=== PATIENT | male | born 1965 | race American Indian/Alaskan Native ===

== ENCOUNTER 2018-07-11 20:14 | Emergency (ER) | payer OTHER ==
[2018-07-11] MEDS ORDERED: MOTRIN ONE (20:53)
[2018-07-11 20:56] VITALS: BP 109/72
[2018-07-11] MEDS ORDERED: MOTRIN PO ONE (20:57)
--- NOTE | 2018-07-11 22:45 | XRay Report ---
FINAL REPORT PROCEDURE: XR SPINE LUMBOSACRAL 2-3V TECHNIQUE: Lumbosacral spine, three views HISTORY: lower back pain COMPARISON: No prior studies are available for comparison. FINDINGS: No scoliosis. The vertebral body alignment is maintained. There is mild vertebral body height loss of L2 and L4, of uncertain chronicity, possibly chronic. Facet arthritic changes of the lower lumbar spine are present. Anterior osteophytes are present. IMPRESSION: Mild vertebral body height loss of L2 and L4, of uncertain chronicity. If there has been acute injury, further evaluation with CT could be obtained
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
== END 2018-07-12 01:10 | disposition home or self-care (01) ==
LOC: ED 20:14
DX: M51.86 Other intervertebral disc disorders, lumbar region (principal); E11.9 Type 2 diabetes mellitus without complications; V89.2XXA Person injured in unspecified motor-vehicle accident, traffic, initial encounter; Y93.89 Activity, other specified; Y99.8 Other external cause status; Y92.410 Unspecified street and highway as the place of occurrence of the external cause
CPT/HCPCS: 72100; 72131

== ENCOUNTER 2018-08-12 20:50 | Emergency (ER) | payer SELFPAY ==
[2018-08-12 22:31] VITALS: BP 145/94
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
[2018-08-13] MEDS ORDERED: XYLOCAINE 1% 20 mL INFILTRATI ONE (00:03)
[2018-08-13] MEDS ORDERED: NORCO 5/325 PO ONE (00:03)
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
[2018-08-13] MEDS ORDERED: BOOSTRIX IM ONE (00:08)
[2018-08-13] MEDS ORDERED: XYLOCAINE 1% MPF 5 mL ONE (00:17)
== END 2018-08-13 01:45 | disposition home or self-care (01) ==
LOC: ED 20:50
DX: S61.012A Laceration without foreign body of left thumb without damage to nail, initial encounter (principal); E11.9 Type 2 diabetes mellitus without complications; F17.200 Nicotine dependence, unspecified, uncomplicated; W27.8XXA Contact with other nonpowered hand tool, initial encounter; Y93.89 Activity, other specified; Y99.8 Other external cause status; Y92.89 Other specified places as the place of occurrence of the external cause
CPT/HCPCS: 90471; 90715; 99283

== ENCOUNTER 2021-02-15 20:50 | Emergency (ER) | payer SELFPAY ==
[2021-02-15 21:11] VITALS: BP 143/89
--- NOTE | 2021-02-15 21:15 | Event Note ---
ED Screening Note Date of service: 02/15/21 Time: 21:11 ED Screening Note: 55-year-old [id number] male patient with history of diabetes presents to emergency department with complaints of progressively worsening pain and swelling of his right hand over the course of the last week. Patient states he was woodworking and accidentally punctured himself with a splinter. He thought he had remove the splinter, but now he thinks he may have been unsuccessful. No current antibiotic use. He admits that he has not been monitoring his blood glucose levels. General: Awake, appropriately interactive, no acute distress. Neck: Supple. Full range of motion intact. Cardiovascular: Normal peripheral perfusion. Pulmonary: No respiratory distress. Patient is speaking normally without use of accessory muscles. Skin: No apparent rashes or lesions. Neurological: No facial asymmetry. Speech is clear. Follows commands. Patient is alert and oriented. Musculoskeletal: Tenderness to palpation along the right thumb with swelling most pronounced throughout the radial aspect of the right hand. Active and passive range of motion intact but painful in all directions, limited slightly due to the swelling. Distal neurovascular motor/sensory function is intact. Psych: Cooperative. Appropriate mood and affect. I have greeted and performed a focused rapid initial assessment of this patient. A comprehensive ED assessment and evaluation of the patient, analysis of all test results, and completion of the medical decision-making process will be conducted by additional ED providers. This initial assessment/diagnostic orders/clinical plan/treatment(s) is/are subject to change based on patients health status, clinical progression and re-assessment. Further treatment and workup at subsequent clinical provider's discretion. Patient/guardian urged not to elope from the ED as their condition may be serious if not clinically assessed and managed.
[2021-02-15 21:29] LABS: Basophils % (Auto) 0.3 % (0.0-1.8); Eosinophils # (Auto) 0.2 K/mm3 (0.0-0.4); Eosinophils % (Auto) 1.9 % (0.0-4.3); Hematocrit 41.7 % (35.5-45.6); Lymphocytes # (Auto) 2.6 K/mm3 (1.2-5.4); Lymphocytes % (Auto) 24.1 % (13.4-35.0); Mean Corpuscular HGB Conc 34 % (32-34); Mean Corpuscular Volume 88 fl (84-94); Monocytes # (Auto) 0.7 K/mm3 (0.0-0.8); Monocytes % (Auto) 6.8 % (0.0-7.3); Platelet Count 218 K/mm3 (140-440); Red Blood Count 4.74 M/mm3 (3.65-5.03); Red Cell Distribution Width 13.4 % (13.2-15.2)
--- NOTE | 2021-02-15 21:45 | XRay Report ---
EXAMINATION: Right hand radiograph, 3 views, 02/15/2021 CLINICAL INFORMATION: Right hand pain and swelling. Evaluate for foreign body. Splinter. COMPARISON: None. FINDINGS: There is no evidence of acute fracture. No significant bony degenerative changes are noted. There is minimal soft tissue injury and soft tissue gas at the base of the thumb at the area of inju ry indicated by the technologist. No radiodense foreign body is identified. IMPRESSION: 1. Soft tissue injury at the base of the thumb without evidence for radiodense foreign body. Please note that some foreign body such as wood fragments are not well visualized by x-ray. Signer Name: Iva Agee MD Signed: 02/15/2021 9:40 PM Workstation Name: [id number]
[2021-02-15 21:49] LABS: Alanine Aminotransferase 12 units/L (7-56); Albumin 3.7 g/dL (3.9-5); BUN/Creatinine Ratio 11; Blood Urea Nitrogen 9 mg/dL (9-20); Calcium 8.7 mg/dL (8.4-10.2); Hemolysis Index 7
--- NOTE | 2021-02-15 21:51 | Emergency Department Report ---
<BARBOURROSY - Last Filed: 02/15/21 22:39> - General Chief complaint: Extremity Injury, Upper Stated complaint: RT FINGER PAIN Time Seen by Provider: 02/15/21 21:34 - Related Data Previous Rx's Medication Instructions Recorded Last Taken Type traMADoL [Ultram 50 MG tab] 50 mg PO Q6HR PRN #12 tablet 07/12/18 Unknown Rx Ibuprofen [Motrin 600 MG tab] 600 mg PO Q8H PRN #15 tablet 08/13/18 Unknown Rx cephALEXin [Keflex] 500 mg PO BID 10 Days #20 capsule 08/13/18 Unknown Rx Amoxicillin/Potassium Clav 1 each PO BID 10 Days #20 tablet 02/15/21 Unknown Rx [Augmentin 875-125 Tablet] HYDROcodone/APAP 5-325 [Tatamy 1 each PO Q6HR PRN #10 tablet 02/15/21 Unknown Rx 5/325] Sulfamethoxazole/Trimethoprim 1 each PO BID 7 Days #14 tablet 02/15/21 Unknown Rx [Bactrim DS TAB] Allergies Allergy/AdvReac Type Severity Reaction Status Date / Time No Known Allergies Allergy Unverified 07/11/18 20:56 Abscess Boil HPI - HPI Chief Complaint: Extremity Injury, Upper Stated Complaint: RT FINGER PAIN Time Seen by Provider: 02/15/21 21:34 Home Medications: Previous Rx's Medication Instructions Recorded Last Taken Type traMADoL [Ultram 50 MG tab] 50 mg PO Q6HR PRN #12 tablet 07/12/18 Unknown Rx Ibuprofen [Motrin 600 MG tab] 600 mg PO Q8H PRN #15 tablet 08/13/18 Unknown Rx cephALEXin [Keflex] 500 mg PO BID 10 Days #20 capsule 08/13/18 Unknown Rx Amoxicillin/Potassium Clav 1 each PO BID 10 Days #20 tablet 02/15/21 Unknown Rx [Augmentin 875-125 Tablet] HYDROcodone/APAP 5-325 [Tatamy 1 each PO Q6HR PRN #10 tablet 02/15/21 Unknown Rx 5/325] Sulfamethoxazole/Trimethoprim 1 each PO BID 7 Days #14 tablet 02/15/21 Unknown Rx [Bactrim DS TAB] Allergies/Adverse Reactions: Allergies Allergy/AdvReac Type Severity Reaction Status Date / Time No Known Allergies Allergy Unverified 07/11/18 20:56 ED Past Medical Hx - Medications Home Medications: Home Medications Medication Instructions Recorded Confirmed Last Taken Type traMADoL [Ultram 50 MG tab] 50 mg PO Q6HR PRN #12 tablet 07/12/18 Unknown Rx Ibuprofen [Motrin 600 MG tab] 600 mg PO Q8H PRN #15 tablet 08/13/18 Unknown Rx cephALEXin [Keflex] 500 mg PO BID 10 Days #20 capsule 08/13/18 Unknown Rx Amoxicillin/Potassium Clav 1 each PO BID 10 Days #20 tablet 02/15/21 Unknown Rx [Augmentin 875-125 Tablet] HYDROcodone/APAP 5-325 [Tatamy 1 each PO Q6HR PRN #10 tablet 02/15/21 Unknown Rx 5/325] Sulfamethoxazole/Trimethoprim 1 each PO BID 7 Days #14 tablet 02/15/21 Unknown Rx [Bactrim DS TAB] ED Medical Decision Making - Lab Data Result diagrams: 02/15/21 21:13 02/15/21 21:13 - Medical Decision Making [id number] attestation by Dr. Barbour: I evaluated patient. Patient presents 1 week after puncture wound. He has fluctuance with central pulsatile abscess 3 cm at the IP. No extension to the end of the finger. Finger is mostly normal size. Mild erythema extending to the mid proximal phalanx. Patient had full flexion-extension at the time. I do not suspect flexor tendinitis at this time. My colleague has arranged follow-up with [facility] hand surgeon tomorrow. ED Disposition Clinical Impression: Hand abscess Disposition: DC- TO HOME OR SELFCARE Condition: Stable Instructions: Skin Abscess Additional Instructions: Please use medication as prescribed. I spoke with orthopedic hand surgeon at [place] Dr. No who advised to call his office tomorrow morning at 8 or 9 AM at [phone] to be able to get you in his office as soon as possible. Return to emergency room for any new or worsening symptoms. Prescriptions: Amoxicillin/Potassium Clav [Augmentin 875-125 Tablet] 1 each PO BID 10 Days #20 tablet Sulfamethoxazole/Trimethoprim [Bactrim DS TAB] 1 each PO BID 7 Days #14 tablet HYDROcodone/APAP 5-325 [Tatamy 5/325] 1 each PO Q6HR PRN #10 tablet PRN Reason: Pain , Severe (7-10) Referrals: hair, orthopedic [Other] - VIDYA Print Language: TELUGU <ABY RODRIGUEZ - Last Filed: 02/16/21 00:15> - General Source: patient Mode of arrival: Ambulatory Limitations: No Limitations - History of Present Illness Initial comments: Patient is a 55-year-old male presents emergency room with complaints of right hand and thumb pain that began a few days ago. He states a week ago he was doing some woodworking and that he got a splinter stuck in his right hand, he states he believes he removed all the splinter but is not sure. He states he has seen some purulent drainage from the hand. He states he has had some increasing pain and swelling over the last few days. He denies any fever, na usea, vomiting, diarrhea, chills. Past medical history of diabetes on Metformin. He states he does not routinely check his blood glucose. No allergies to medications. He had a Boostrix at this facility in 2018. ED Review of Systems ROS: Stated complaint: RT FINGER PAIN Other details as noted in HPI Comment: All other systems reviewed and negative ED Past Medical Hx - Past Medical History Hx Diabetes: Yes - Social History Smoking Status: Never Smoker ED Physical Exam - General Limitations: No Limitations General appearance: alert, in no apparent distress - Head Head exam: Present: atraumatic, normocephalic - Eye Eye exam: Present: normal appearance - ENT ENT exam: Present: mucous membranes moist - Respiratory Respiratory exam: Absent: respiratory distress, accessory muscle use - Extremities Exam Extremities exam: Present: other (edema, ttp, and increased warmth present to the right thenar emminence and proximal thumb, decreased ROM secondary to swelling and pain, small abrasion present to the palmar surface right hand overlying the thenar emminence, neurovascularly intact) - Neurological Exam Neurological exam: Present: alert, oriented X3 - Psychiatric Psychiatric exam: Present: normal affect, normal mood - Skin Skin exam: Present: warm, dry ED Course Vital Signs 02/15/21 02/15/21 21:10 21:11 Temperature 98.5 F Pulse Rate 85 Respiratory 20 Rate Blood Pressure 143/89 O2 Sat by Pulse 99 Oximetry - Consultations Consultation #1: 02/15/21 21:50 Spoke with the [facility] line, will call back with hand surgery consultation 02/15/21 22:[address] Jesus No, hand surgeon at [place], regarding patient presentation, history, results advised to place patient on Augmentin and Bactrim and to have patient call his office number at 8 AM tomorrow morning 02/16/2021 at [phone] ED Medical Decision Making - Lab Data Result diagrams: 02/15/21 21:13 02/15/21 21:13 - Radiology Data Radiology results: report reviewed, image reviewed Ordering Physician: MIRA BECK Date of Service: 02/15/21 Procedure(s): XR hand 3+V RT Accession Number(s): [id number] cc: MIRA BECK Fluoro Time In Minutes: EXAMINATION: Right hand radiograph, 3 views, 02/15/2021 CLINICAL INFORMATION: Right hand pain and swelling. Evaluate for foreign body. Splinter. COMPARISON: None. FINDINGS: There is no evidence of acute fracture. No significant bony degenerative changes are noted. There is minimal soft tissue injury and soft tissue gas at the base of the thumb at the area of injury indicated by the technologist. No radiodense foreign body is identified. IMPRESSION: 1. Soft tissue injury at the base of the thumb without evidence for radiodense foreign body. Please note that some foreign body such as wood fragments are not well visualized by x-ray. Signer Name: Iva Agee MD Signed: 02/15/2021 9:40 PM Workstation Name: [id number] Transcribed By: BETO Dictated By: Iva Agee MD Electronically Authenticated By: Iva Agee MD Signed Date/Time: 02/15/212139 DD/ 38 TD/TT: - Medical Decision Making Patient is a 55-year-old male presents emergency room with complaints of right hand and thumb pain that began a few days ago. He states a week ago he was doing some woodworking and that he got a splinter stuck in his right hand, he states he believes he removed all the splinter but is not sure. He states he has seen some purulent drainage from the hand. He states he has had some increasing pain and swelling over the last few days. He denies any fever, nausea, vomiting, diarrhea, chills. Past medical history of diabetes on Met formin. He states he does not routinely check his blood glucose. No allergies to medications. He had a Boostrix at this facility in 2018. Vitals are stable. Patient is afebrile, no tachycardia. On exam: edema, ttp, and increased warmth present to the right thenar emminence and proximal thumb, decreased ROM secondary to swelling and pain, small abrasion present to the palmar surface right hand overlying the thenar emminence, neurovascularly intact. Labs are stable. No leukocytosis. X-ray right hand: 1. Soft tissue injury at the base of the thumb without evidence for radiodense foreign body.Please note that some foreign body such as wood fragments are not well visualized by x-ray. Discussed results with Dr. Akilah Barbour, ER attending who evaluated patient at bedside, believes likely hand abscess, does not suspect infectious tenosynovitis, advised to prescribe p.o. medications, declines IV antibiotics at this time, advised to consult hand surgeon for outpatient follow-up. Spoke with Dr. Jesus No, hand surgeon at [place], regarding patient presentation, history, results advised to place patient on Augmentin and Bactrim and to have patient call his office number at 8 AM tomorrow morning 02/16/2021 at [phone] Critical care attestation.: If time is entered above; I have spent that time in minutes in the direct care of this critically ill patient, excluding procedure time. ED Disposition Is pt being admited?: No Does the pt Need Aspirin: No Time of Disposition: 22:31
== END 2021-02-15 22:45 | disposition home or self-care (01) ==
LOC: ED 20:50
DX: L02.511 Cutaneous abscess of right hand (principal); E11.9 Type 2 diabetes mellitus without complications; Z79.899 Other long term (current) drug therapy
CPT/HCPCS: 36415; 80053; 85025; 87040

== ENCOUNTER 2021-04-16 09:37 | Emergency (ER) | payer SELFPAY ==
--- NOTE | 2021-04-16 10:30 | Event Note ---
ED Screening Note Date of service: 04/16/21 Time: 10:28 ED Screening Note: 55-year-old male patient presents emergency department with complaints of abdominal pain and rectal pain starting 2 weeks ago. Patient states the rectal pain is only present when he is attempting to have a bowel movement. States he has not had a bowel movement in 2 weeks. States he is not passing gas. No prior history of bowel obstruction. No prior abdominal surgery. No nausea or vomiting. General: Awake, appropriately interactive, no acute distress. Neck: Supple. Full range of motion intact. Cardiovascular: Normal peripheral perfusion. Pulmonary: No respiratory distress. Patient is speaking normally without use of accessory muscles. Abdomen: Soft, nontender, nondistended. Diminished bowel sounds throughout. Skin: No apparent rashes or lesions. Neurological: No facial asymmetry. Speech is clear. Follows commands. Patient is alert and oriented. Musculoskeletal: Moves all four extremities spontaneously with normal range of motion. Psych: Cooperative. Appropriate mood and affect. Initial labs ordered; decision to obtain imaging deferred to additional ED providers following full history and physical examination. I have greeted and performed a focused rapid initial assessment of this patient. A comprehensive ED assessment and evaluation of the patient, analysis of all test results, and completion of the medical decision-making process will be conducted by additional ED providers. This initial assessment/diagnostic orders/clinical plan/treatment(s) is/are subject to change based on patients health status, clinical progression and re-assessment. Further treatment and workup at subsequent clinical provider's discretion. Patient/guardian urged not to elope from the ED as their condition may be serious if not clinically assessed and managed.
[2021-04-16 11:04] LABS: Hematocrit 41.3 % (35.5-45.6); Mean Corpuscular HGB Conc 34 % (32-34); Mean Corpuscular Volume 89 fl (84-94); Platelet Count 213 K/mm3 (140-440); Red Blood Count 4.65 M/mm3 (3.65-5.03); Red Cell Distribution Width 14.2 % (13.2-15.2)
[2021-04-16 11:21] LABS: Alanine Aminotransferase 14 units/L (7-56); Albumin 4.1 g/dL (3.9-5); BUN/Creatinine Ratio 12; Blood Urea Nitrogen 11 mg/dL (9-20); Calcium 8.8 mg/dL (8.4-10.2); Hemolysis Index 6
[2021-04-16] MEDS ORDERED: SODIUM CHLORIDE 0.9% 1000 ML 1,000 ML IV ONE (11:55)
--- NOTE | 2021-04-16 12:37 | Emergency Department Report ---
ED Abdominal Pain HPI - General Chief Complaint: Abdominal Pain Stated Complaint: SYMPTOMS OF EPI/STOMACH PAIN PUI?: No Time Seen by Provider: 04/16/21 11:43 Source: patient Mode of arrival: Ambulatory Limitations: No Limitations - History of Present Illness Initial Comments: Mr. Agee is a 51-year-old male that comes to the emergency room complaining of diffuse abdominal pain and constipation. He states that he has not had a bowel movement in over 2 weeks. He denies nausea or vomiting. He states that he took Ex-Lax and an enema at home with no relief. Patient denies any prior abdominal surgery. Patient denies taking narcotic medications. He denies a history of constipation. The only medication the patient is taking his Metformin for his diabetes. Patient has not seen his primary care provider prior to coming to the ER. Patient's abdomen is tender in all quadrants. He is anxious standing up and trying to walk so that he can defecate. MD Complaint: abdominal pain -: Gradual, week(s) Location: diffuse Radiation: none Migration to: no migration Severity: severe Severity scale (0 -10): 8 Quality: cramping, aching Consistency: constant Improves With: nothing Worsens With: nothing Associated Symptoms: denies other symptoms. denies: nausea, vomiting, diarrhea - Related Data Previous Rx's Medication Instructions Recorded Last Taken Type Docusate Sodium [Colace] 100 mg PO BID #60 capsule 04/16/21 Unknown Rx Magnesium Citrate [Citrate of 300 ml PO ONCE #1 bottle 04/16/21 Unknown Rx Magnesia] Allergies Allergy/AdvReac Type Severity Reaction Status Date / Time No Known Allergies Allergy Unverified 07/11/18 20:56 ED Review of Systems ROS: Stated complaint: SYMPTOMS OF EPI/STOMACH PAIN Other details as noted in HPI Comment: All other systems reviewed and negative ED Past Medical Hx - Past Medical History Previous Medical History?: Yes Hx Diabetes: Yes - Surgical History Past Surgical History?: No - Family History Family history: no significant - Social History Smoking Status: Never Smoker Substance Use Type: None - Medications Home Medications: Home Medications Medication Instructions Recorded Confirmed Last Taken Type Docusate Sodium [Colace] 100 mg PO BID #60 capsule 04/16/21 Unknown Rx Magnesium Citrate [Citrate of 300 ml PO ONCE #1 bottle 04/16/21 Unknown Rx Magnesia] ED Physical Exam - General Limitations: No Limitations General appearance: alert, in no apparent distress - Head Head exam: Present: atraumatic, normocephalic - Eye Eye exam: Present: normal appearance - ENT ENT exam: Present: mucous membranes moist - Neck Neck exam: Present: normal inspection - Respiratory Respiratory exam: Present: normal lung sounds bilaterally. Absent: respiratory distress - Cardiovascular Cardiovascular Exam: Present: regular rate, normal rhythm. Absent: systolic murmur, diastolic murmur, rubs, gallop - GI/Abdominal GI/Abdominal exam: Present: soft, distended, tenderness, normal bowel sounds. Absent: guarding, rebound, rigid, diminished bowel sounds, hyperactive bowel sounds, hypoactive bowel sounds, organomegaly, mass, bruit, pulsatile mass, hernia - Rectal Rectal exam: Present: deferred - Extremities Exam Extremities exam: Present: normal inspection - Back Exam Back exam: Present: normal inspection - Neurological Exam Neurological exam: Present: alert, oriented X3 - Psychiatric Psychiatric exam: Present: normal affect, normal mood - Skin Skin exam: Present: warm, dry, intact, normal color. Absent: rash ED Course Vital Signs 04/16/21 04/16/21 04/16/21 09:48 12:07 14:12 Temperature 97.3 F L Pulse Rate 70 77 Respiratory 20 18 16 Rate Blood Pressure 140/82 158/86 [Right] O2 Sat by Pulse 99 98 Oximetry ED Medical Decision Making - Lab Data Result diagrams: 04/16/21 10:46 04/16/21 10:46 - Radiology Data Radiology results: report reviewed, image reviewed SEE REPORT - Medical Decision Making Vital Signs 04/16/21 04/16/21 09:48 12:07 Temperature 97.3 F L Pulse Rate 70 Respiratory 20 18 Rate Blood Pressure 140/82 [Right] O2 Sat by Pulse 99 Oximetry Labs 04/16/21 04/16/21 04/16/21 10:46 10:46 Unknown WBC 11.1 H RBC 4.65 Hgb 14.0 Hct 41.3 MCV 89 MCH 30 MCHC 34 RDW 14.2 Plt Count 213 Sodium 137 Potassium 4.4 Chloride 100.7 Carbon Dioxide 28 Anion Gap 13 BUN 11 Creatinine 0.9 Estimated GFR > 60 BUN/Creatinine Ratio 12 Glucose 133 H Calcium 8.8 Total Bilirubin 0.40 AST 21 ALT 14 Alkaline Phosphatase 94 Total Protein 7.6 Albumin 4.1 Albumin/Globulin Ratio 1.2 Lipase 19 Urine Color Straw Urine Turbidity Clear Urine pH 6.0 Ur Specific [place] 1.003 Urine Protein <15 mg/dl Urine Glucose (UA) Neg Urine Ketones Neg Urine Blood Neg Urine Nitrite Neg Urine Bilirubin Neg Urine Urobilinogen < 2.0 Ur Leukocyte Esterase Neg Urine WBC (Auto) < 1.0 Urine RBC (Auto) 2.0 Urine Bacteria (Auto) 1+ Labs noted. UA noted. Given the 2-week history of having no BM, patient underwent a CT scan with contrast to rule out obstruction or other bowel etiology of his constipation. CT scan noted to have stool volume but no SBO or other obstruction. Patient given an enema and suppository here in the emergency room. I have given him here in the ER since he says that he is done an enema at home with no relief. Patient will be discharged home with mag citrate and Colace twice daily. I have instructed him to follow-up with his primary care provider so that they can make sure this does not recur. I explained to him that this can cause serious consequences. I have also explained to him that he most likely needs a colonoscopy. Patient verbalizes understanding of discharge plan of care. - Differential Diagnosis CONSTIPATION RO OBSTRUCTION Critical care attestation.: If time is entered above; I have spent that time in minutes in the direct care of this critically ill patient, excluding procedure time. ED Disposition Clinical Impression: Constipation, Abdominal pain Disposition: -01 TO HOME OR SELFCARE Is pt being admited?: No Condition: Fair Instructions: Chronic Constipation Additional Instructions: MEDS ORDERED TODAY FOLLOW UP WITH PCP IN 48 HOURS FOR RECHECK You most likely will need a colonoscopy. Stay well-hydrated Increase fiber in diet Prescriptions: Magnesium Citrate [Citrate of Magnesia] 300 ml PO ONCE #1 bottle Docusate Sodium [Colace] 100 mg PO BID #60 capsule Referrals: SAMANTHA JACQUES MD [Staff Physician] - 3-5 Days Time of Disposition: 13:54
--- NOTE | 2021-04-16 13:37 | Cat Scan Report ---
CT abdomen pelvis w con INDICATION: Abdominal pain. No bowel movement.. COMPARISON: None TECHNIQUE: Abdominal and pelvic CT exam performed. All CT scans at this location are performed using CT dose reduction for ALARA by means of automated exposure control. FINDINGS: CT ABDOMEN and PELVIS: Lung Bases: No significant abnormality. Liver: No significant abnormality. Biliary: No significant abnormality. Spleen: No significant abnormality. Pancreas: No significant abnormality. Adrenals: No significant abnormality. Kidneys: No significant abnormality. Lymphatics: No lymphadenopathy. Vasculature: No significant abnormality. Bowel: Moderate quantity of stool in the rectum. Pelvis: No significant abnormality. Osseous Structures: No aggressive osseous lesion. A few levels of chronic vertebral body height loss. No acute appearing vertebral intervals. Additional Findings: None IMPRESSION: 1. Moderate quantity of stool in the rectum. Otherwise, no significant abnormality of the abdomen or pelvis. Signer Name: Austin Aguilar MD Signed: 04/16/2021 1:33 PM Workstation Name: [id number]
[2021-04-16] MEDS ORDERED: FLEET ENEMA PR ONE (13:50)
[2021-04-16 13:55] LABS: Bacteria,Urine 1+ /HPF (Negative); Bilirubin,Urine NEG (Negative); Blood,Urine NEG (Negative); Color,Urine Straw (Yellow); Protein,Urine <15 mg/dL mg/dL (Negative); Urobilinogen,Urine < 2.0 mg/dL (<2.0); WBC,Urine < 1.0 /HPF (0.0-6.0)
[2021-04-16 14:12] VITALS: BP 158/86
== END 2021-04-16 14:16 | disposition home or self-care (01) ==
LOC: ED 09:37
DX: K59.00 Constipation, unspecified (principal); R10.84 Generalized abdominal pain; E11.9 Type 2 diabetes mellitus without complications; Z79.899 Other long term (current) drug therapy
CPT/HCPCS: 36415; 74177; 80053; 81001; 83690; 85027; 96360; 99284; Q9967

== ENCOUNTER 2021-06-11 05:41 | Emergency (ER) | payer SELFPAY ==
--- NOTE | 2021-06-11 07:36 | Cat Scan Report ---
CT HEAD WITHOUT CONTRAST INDICATION / CLINICAL INFORMATION: recurrent fall, LOC , pt states he has fallen 3 times. TECHNIQUE: Axial imaging performed from the skull apex through the skull base without the use of cont rast. Sagittal and coronal reformatted images. All CT scans at this location are performed using CT dose reduction for ALARA by means of automated exposure control. COMPARISON: None available. FINDINGS: CEREBRAL PARENCHYMA: No significant abnormality. No acute territorial infarct. HEMORRHAGE: None. EXTRA-AXIAL SPACES: Normal in size and morphology for the patient's age. VENTRICULAR SYSTEM: Normal in size and morphology for the patient's age. MIDLINE SHIFT OR HERNIATION: None. CEREBELLUM / BRAINSTEM: No significant abnormality. CALVARIUM: No significant abnormality. ORBITS: Normal as visualized. PARANASAL SINUSES / MASTOID AIR CELLS: Normal as visualized. SOFT TISSUES of HEAD: No significant abnormality. ADDITIONAL FINDINGS: None. IMPRESSION: No acute intracranial abnormality. Signer Name: Royer Belcher Jr, MD Signed: 06/11/2021 7:31 AM Workstation Name: [id number]
[2021-06-11 07:56] LABS: Basophils % (Auto) 0.4 % (0.0-1.8); Hematocrit 49.3 % (35.5-45.6); Hemoglobin 16.7 gm/dl (11.8-15.2); Lymphocytes % (Auto) 33.2 % (13.4-35.0); Mean Corpuscular HGB Conc 34 % (32-34); Mean Corpuscular Volume 89 fl (84-94); Monocytes # (Auto) 0.7 K/mm3 (0.0-0.8); Monocytes % (Auto) 11.7 % (0.0-7.3); Platelet Count 189 K/mm3 (140-440); Red Blood Count 5.55 M/mm3 (3.65-5.03)
[2021-06-11 08:13] LABS: BUN/Creatinine Ratio 15; Blood Urea Nitrogen 17 mg/dL (9-20); Calcium 9.3 mg/dL (8.4-10.2); Hemolysis Index 21
[2021-06-11] MEDS ORDERED: SODIUM CHLORIDE 0.9% 1000 ML 1,000 ML IV ONE (10:08)
--- NOTE | 2021-06-11 10:11 | Emergency Department Report ---
HPI - General Chief Complaint: Weakness Time Seen by Provider: 06/11/21 09:57 - HPI HPI: This is a 55-year-old -[place] male presents to the emergency department with complaint of recurrent episodes of passing out that has been going on over the past 3 to 4 days. Patient says that it occurs just after the patient stands up. He does admit to some generalized weakness. He also admits to some generalized abdominal cramping pains. He denies any fever, headache, vision change, numbness or paresthesias, slurred speech, focal or lateralizing we akness. He has not taken anything for symptoms prior to presentation today. He has a past medical history of diabetes on both pills and insulin. No recent travel or sick contacts at home. ED Past Medical Hx - Past Medical History Previous Medical History?: Yes Hx Diabetes: Yes - Surgical History Past Surgical History?: No - Social History Smoking Status: Never Smoker Substance Use Type: None - Medications Home Medications: Home Medications Medication Instructions Recorded Confirmed Last Taken Type Docusate Sodium [Colace] 100 mg PO BID #60 capsule 04/16/21 Unknown Rx Magnesium Citrate [Citrate of 300 ml PO ONCE #1 bottle 04/16/21 Unknown Rx Magnesia] ED Review of Systems ROS: Stated complaint: ABD PAIN/FAINTING/DIABETIC Other details as noted in HPI Comment: All other systems reviewed and negative Constitutional: weakness. denies: chills, fever Eyes: denies: eye pain, vision change ENT: denies: ear pain, throat pain Respiratory: denies: cough, shortness of breath Cardiovascular: denies: chest pain, palpitations Gastrointestinal: abdominal pain (Cramping pain). denies: vomiting, diarrhea, constipation Genitourinary: denies: dysuria, discharge Musculoskeletal: denies: back pain, arthralgia Skin: denies: rash, lesions Neurological: denies: headache, numbness, paresthesias Physical Exam - Physical Exam Vital Signs: Vital Signs 06/11/21 06:08 Temperature 98.3 F Pulse Rate 100 H Respiratory 16 Rate Blood Pressure 94/53 [Left] O2 Sat by Pulse 100 Oximetry Physical Exam: GENERAL: The patient is well-developed well-nourished. HENT: Normocephalic. Atraumatic. Patient has moist mucous membranes. EYES: Extraocular motions are intact. Pupils equal reactive to light bilaterally. Fatigable horizontal nystagmus. NECK: Supple. Trachea is midline. CHEST/LUNGS: Clear to auscultation. There is no respiratory distress noted. HEART/CARDIOVASCULAR: Regular. There is no tachycardia. There is no murmur. ABDOMEN: Abdomen is soft, nontender. Patient has normal bowel sounds. There is no abdominal distention. SKIN: Skin is warm and dry. NEURO: The patient is awake, alert, and oriented. The patient is cooperative. The patient has no focal neurologic deficits. Normal speech. Cranial nerves II through XII grossly intact. No pronator drift or dysmetria. No facial asymmetry. MUSCULOSKELETAL: There is no tenderness or deformity. There is no limitation range of motion. ED Course Vital Signs 06/11/21 06:08 Temperature 98.3 F Pulse Rate 100 H Respiratory 16 Rate Blood Pressure 94/53 [Left] O2 Sat by Pulse 100 Oximetry Vital Signs 06/11/21 06/11/21 06/11/21 06:08 10:16 10:30 Temperature 98.3 F Pulse Rate 100 H 80 Pulse Rate [ Lying] Pulse Rate [ Sitting] Pulse Rate [ Standing] Respiratory 16 14 Rate Blood Pressure 123/78 Blood Pressure 94/53 [Left] Blood Pressure [Lying] Blood Pressure [Sitting] Blood Pressure [Standing] O2 Sat by Pulse 100 96 97 Oximetry 06/11/21 06/11/21 06/11/21 11:00 11:21 11:30 Temperature Pulse Rate 78 73 Pulse Rate [ 78 Lying] Pulse Rate [ 85 Sitting] Pulse Rate [ 76 Standing] Respiratory 14 16 Rate Blood Pressure 123/78 128/104 Blood Pressure [Left] Blood Pressure 139/89 [Lying] Blood Pressure 154/112 [Sitting] Blood Pressure 128/104 [Standing] O2 Sat by Pulse 97 95 Oximetry 06/11/21 12:00 Temperature Pulse Rate 76 Pulse Rate [ Lying] Pulse Rate [ Sitting] Pulse Rate [ Standing] Respiratory 18 Rate Blood Pressure 106/78 Blood Pressure [Left] Blood Pressure [Lying] Blood Pressure [Sitting] Blood Pressure [Standing] O2 Sat by Pulse 99 Oximetry ED Medical Decision Making - Lab Data Result diagrams: 06/11/21 06:57 06/11/21 06:57 Lab Results 06/11/21 06/11/21 06/11/21 Range/Units 06:13 06:57 06:57 WBC 6.0 (4.5-11.0) K/mm3 RBC 5.55 H (3.65-5.03) M/mm3 Hgb 16.7 H (11.8-15.2) gm/dl Hct 49.3 H (35.5-45.6) % MCV 89 (84-94) fl MCH 30 (28-32) pg MCHC 34 (32-34) % RDW 14.0 (13.2-15.2) % Plt Count 189 (140-440) K/mm3 Lymph % (Auto) 33.2 (13.4-35.0) % Love % (Auto) 11.7 H (0.0-7.3) % Eos % (Auto) 0.0 (0.0-4.3) % Baso % (Auto) 0.4 (0.0-1.8) % Lymph # (Auto) 2.0 (1.2-5.4) K/mm3 Love # (Auto) 0.7 (0.0-0.8) K/mm3 Eos # (Auto) 0.0 (0.0-0.4) K/mm3 Baso # (Auto) 0.0 (0.0-0.1) K/mm3 Seg Neutrophils % 54.7 (40.0-70.0) % Seg Neutrophils # 3.3 (1.8-7.7) K/mm3 Sodium 135 L (137-145) mmol/L Potassium 4.4 (3.6-5.0) mmol/L Chloride 95.0 L (98-107) mmol/L Carbon Dioxide 29 (22-30) mmol/L Anion Gap 15 mmol/L BUN 17 (9-20) mg/dL Creatinine 1.1 (0.8-1.3) mg/dL Estimated GFR > 60 ml/min BUN/Creatinine Ratio 15 % Glucose 137 H (75-100) mg/dL POC Glucose 133 H (70-105) mg/dL Calcium 9.3 (8.4-10.2) mg/dL Troponin T (0.00-0.029) ng/mL TSH (0.270-4.200) mlU/mL 06/11/21 06/11/21 Range/Units 11:03 11:03 WBC (4.5-11.0) K/mm3 RBC (3.65-5.03) M/mm3 Hgb (11.8-15.2) gm/dl Hct (35.5-45.6) % MCV (84-94) fl MCH (28-32) pg MCHC (32-34) % RDW (13.2-15.2) % Plt Count (140-440) K/mm3 Lymph % (Auto) (13.4-35.0) % Love % (Auto) (0.0-7.3) % Eos % (Auto) (0.0-4.3) % Baso % (Auto) (0.0-1.8) % Lymph # (Auto) (1.2-5.4) K/mm3 Love # (Auto) (0.0-0.8) K/mm3 Eos # (Auto) (0.0-0.4) K/mm3 Baso # (Auto) (0.0-0.1) K/mm3 Seg Neutrophils % (40.0-70.0) % Seg Neutrophils # (1.8-7.7) K/mm3 Sodium (137-145) mmol/L Potassium (3.6-5.0) mmol/L Chloride (98-107) mmol/L Carbon Dioxide (22-30) mmol/L Anion Gap mmol/L BUN (9-20) mg/dL Creatinine (0.8-1.3) mg/dL Estimated GFR ml/min BUN/Creatinine Ratio % Glucose (75-100) mg/dL POC Glucose (70-105) mg/dL Calcium (8.4-10.2) mg/dL Troponin T < 0.010 (0.00-0.029) ng/mL TSH 0.537 (0.270-4.200) mlU/mL - EKG Data -: EKG Interpreted by [facility] EKG shows normal: sinus rhythm, axis, intervals, QRS complexes, ST-T waves Rate: normal - EKG Data When compared to previous EKG there are: previous EKG unavailable Interpretation: normal EKG - Radiology Data Radiology results: report reviewed CT HEAD WITHOUT CONTRAST INDICATION / CLINICAL INFORMATION: recurrent fall, LOC , pt states he has fallen 3 times. TECHNIQUE: Axial imaging performed from the skull apex through the skull base without the use of contrast. Sagittal and coronal reformatted images. All CT scans at this location are performed using CT dose reduction for ALARA by means of automated exposure control. COMPARISON: None available. FINDINGS: CEREBRAL PARENCHYMA: No significant abnormality. No acute territorial infarct. HEMORRHAGE: None. EXTRA-AXIAL SPACES: Normal in size and morphology for the patient's age. VENTRICULAR SYSTEM: Normal in size and morphology for the patient's age. MIDLINE SHIFT OR HERNIATION: None. CEREBELLUM / BRAINSTEM: No significant abnormality. CALVARIUM: No significant abnormality. ORBITS: Normal as visualized. PARANASAL SINUSES / MASTOID AIR CELLS: Normal as visualized. SOFT TISSUES of HEAD: No significant abnormality. ADDITIONAL FINDINGS: None. IMPRESSION: No acute intracranial abnormality. - Medical Decision Making This patient presents to the emergency department with a complaint of having at least 3 episodes of passing out just after standing up from laying or sitting. At the time of my examination the patient is awake, alert, oriented. Heart and lung sounds are normal to auscultation and the patient does not appear in any respiratory or acute distress. There is no focal, motor or sensory deficits and his cranial nerves are intact. The patient had a CT scan of the head without contrast prior to my shift beginning that did not show any hemorrhage, large vessel occlusion, or any other acute process. EKG did not have any morphology consistent with ST elevation myocardial infarct ion or any dysrhythmia. Patient's labs shows some mild hemoconcentration with a hemoglobin of 16.7. Otherwise the rest the labs are unremarkable including CBC, metabolic panel, normal thyroid function and a negative troponin. The patient came in with low normal blood pressure with a MAP of 66. For this reason, along with the complaint of syncope when standing, and the hemoconcentration, I believe that the patient's symptoms are at least partially related to orthostatic hypotension and some mild dehydration. The patient had orthostatics done in the emergency department and it was positive when going from the seated position to standing. He was given a liter of IV fluid resuscitation. He was reevaluated multiple times of multiple hours and says that he feels well. He was seen ambulatory in the emergency department and both appears and feels stable. He appears safe for discharge home at this time. He has been given outpatient referrals for primary care. He is also been given a referral for cardiology as he may require a Holter monitor in the future. He will return to the closest emergency department with any worsening of his symptoms or with any acute distress. Critical Care Time: No Critical care attestation.: If time is entered above; I have spent that time in minutes in the direct care of this critically ill patient, excluding procedure time. ED Disposition Clinical Impression: Orthostatic syncope, Recurrent syncope, Dehydration Disposition: DC-01 TO HOME OR SELFCARE Is pt being admited?: No Condition: Stable Instructions: Orthostatic Hypotension, Syncope, Dehydration, Adult, Syncope (ED) Additional Instructions: Please increase your oral rehydration. Please follow-up with a primary care physician in the next few days. I have given you a referral for a local primary care physician, Dr. Gore, and a primary care clinic, [facility]. I have also given you a referral for a local dean, Dr. Estevez, to follow-up regarding the recurrent episodes of passing out. I believe that at least part of your issues of passing out when standing up may be related to some dehydration or what is called orthostatic hypotension. However, you may need something called a Holter monitor to make sure that you do not have any arrhythmias that occur. Your EKG today was normal and did not show any arrhythmia, nor did you have any arrhythmia or abnormalities seen while on our cardiac monitors. Please avoid any alcohol. Try to avoid any excessive caffeine use. Please try and get 10 hours of uninterrupted sleep at night. Return to the emergency department with any worsening of your symptoms, new or concerning symptoms not addressed during this current emergency department visit, or with any acute distress. Referrals: [facility] [Provider Group] - 2-3 Days DAYSI ESTEVEZ MD [Staff Physician] - 2-3 Days LIGIA GORE MD [Staff Physician] - 2-3 Days Time of Disposition: 12:23
[2021-06-11 12:18] VITALS: BP 106/78
--- NOTE | 2021-06-12 17:44 | Electrocardiograph Report ---
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
== END 2021-06-11 12:18 | disposition home or self-care (01) ==
LOC: ED 05:41
DX: E86.0 Dehydration (principal); R55 Syncope and collapse; E11.9 Type 2 diabetes mellitus without complications
CPT/HCPCS: 36415; 70450; 80048; 82962; 84443; 84484; 85025; 93005; 96360; 99284; J7030

== ENCOUNTER 2022-07-14 23:05 | Emergency (ER) | payer SELFPAY ==
--- NOTE | 2022-07-15 00:19 | XRay Report ---
Right hand 3 views INDICATION: Right hand pain after injury Impression no fracture or subluxation of the right hand is identified. Possible laceration along the base of the little finger. Mild degenerative changes are present involving the MCP joints of the inde x and middle finger. Signer Name: Guy Orellana MD Signed: 07/15/2022 12:15 AM Workstation Name: [id number]
--- NOTE | 2022-07-15 06:23 | Emergency Department Report ---
ED Laceration HPI - HPI Chief Complaint: Extremity Injury, Upper Stated Complaint: CUT TO RIGHT HAND Time Seen by Provider: 07/15/22 05:49 Occurred When: Today Location: Upper Extremity Severity: moderate (accidental cut hand on siding from house while replacing it. ) Tetanus Status: Up to Date Laceration Symptoms: Yes Pain ED Review of Systems ROS: Stated complaint: CUT TO RIGHT HAND Other details as noted in HPI Comment: All other systems reviewed and negative ED Past Medical Hx - Past Medical History Hx Diabetes: Yes - Social History Smoking Status: Never Smoker Substance Use Type: None - Medications Home Medications: Home Medications Medication Instructions Recorded Confirmed Last Taken Type Docusate Sodium [Colace] 100 mg PO BID #60 capsule 04/16/21 Unknown Rx Magnesium Citrate [Citrate of 300 ml PO ONCE #1 bottle 04/16/21 Unknown Rx Magnesia] Laceration Physical Exam - Exam General: Vital signs noted. No distress. Alert and acting appropriately. Wound Length (cm): 3 Laceration Location: Upper Extremity Full Body Front + Back: 1 - laceration site Laceration Exam: Yes Normal Distal CMS, No Foreign Body, No Exposed Tendon, Vessel, or Nerve, No Tendon Injury ED Course Vital Signs 07/14/22 23:43 Temperature 97.7 F Pulse Rate 80 Respiratory 16 Rate Blood Pressure 145/65 O2 Sat by Pulse 99 Oximetry - Laceration /Wound Repair Right Hand Wound Location: upper extremity Wound Length (cm): 3 Wound's Depth, Shape: linear Wound Explored: clean Betadine Prep?: Yes Anesthesia: 1% Lidocaine Wound Debrided: minimal Wound Repaired With: sutures Suture Size/Type: 3:0 Number of Sutures: 5 Layer Closure?: No Sterile Dressing Applied?: Yes Critical care attestation.: If time is entered above; I have spent that time in minutes in the direct care of this critically ill patient, excluding procedure time. ED Disposition Clinical Impression: Laceration of right hand Disposition: HOME / SELF CARE / HOMELESS Is pt being admited?: No Does the pt Need Aspirin: No Condition: Stable Instructions: Sutured Wound Care, Sutures, Magnet, or Adhesive Wound Closure, [id number] Referrals: SAMANTHA JACQUES MD [Primary Care Provider] - 7-10 days (F/u to be evaluated for possible suture removal in 10 days)
[2022-07-15 06:50] VITALS: BP 142/68
== END 2022-07-15 06:50 | disposition home or self-care (01) ==
LOC: ED 23:05
DX: S61.411A Laceration without foreign body of right hand, initial encounter (principal); E11.9 Type 2 diabetes mellitus without complications
CPT/HCPCS: 99283